=== PATIENT | male | born 1965 | race Two or more races ===

== ENCOUNTER → 2017-03-23 | Outpatient (CLI) | payer OTHER ==
[~2017-03-23] MED LIST: REGADENOSON 0.4 MG/5 ML SYRINGE ONE
== END | disposition home or self-care (01) ==
LOC: CFH 08:06
PROVIDERS: ATTEND Family Medicine
DX: I99.8 Other disorder of circulatory system (principal)
CPT/HCPCS: 78452; 93017; A9502; J2785

== ENCOUNTER 2017-04-07 09:07 | Inpatient (IN) | payer OTHER ==
[2017-04-06 11:11] LABS: BLOOD UREA NITROGEN 10 mg/dL (7-18)
[2017-04-06 11:15] LABS: ASPARTATE AMINO TRANSFERASE 28 U/L (15-37)
[~2017-04-07] VITALS: Ht 166.4 cm; Wt 90.4 kg
[~2017-04-07 09:07] MED LIST changes: +ACETAMINOPHEN 325 MG TABLET PO PRN; +AMLO10TA2 PO; +ASPI-496 PO; +ASPIRIN 325 MG TABLET EC ONE; +ASPIRIN 325 MG TABLET EC PO ONE; +ATOR40TA78 PO; +BISACODYL 10 MG SUPP PR PRN; +CARV12.543 PO; +NITR0.3T5 SL; +ONDANSETRON 2MG/ML, 2ML IVPush PRN; -REGADENOSON 0.4 MG/5 ML SYRINGE ONE; +VALS1TAB30 PO; +Will bring list DOS; +ZOLPIDEM 5MG TABLET PO PRN
[2017-04-07] MEDS: SODIUM CHLORIDE 0.9% 1,000 ML IV SCH ×2 (09:30→17:42)
[2017-04-07 09:47] VITALS: BP 150/101
[2017-04-07] MEDS ORDERED: FENTANYL PF 100 MCG/2ML ONE (10:36)
[2017-04-07] MEDS ORDERED: MIDAZOLAM 1 MG/ML, 5ML ONE (10:36)
[2017-04-07] MEDS ORDERED: LIDOCAINE 2%, 20ML ONE (10:37)
[2017-04-07] MEDS ORDERED: ACETAMINOPHEN 325 MG TABLET PO PRN (12:30)
[2017-04-07] MEDS ORDERED: INSULIN ASPART 100 UNITS/ML, PEN SQ-INSULIN SCH (12:30)
[2017-04-07] MEDS ORDERED: CHLORHEXIDINE MOUTHWASH 15 ML UDC MM PRN (12:30)
[2017-04-07] MEDS ORDERED: METOPROLOL TARTRATE 25 MG TABLET PO ONE (12:30)
[2017-04-07 13:00] VITALS: BP 155/103
[2017-04-07 13:07] LABS: BLOOD UREA NITROGEN 8 mg/dL (7-18)
[2017-04-07 13:10] LABS: ASPARTATE AMINO TRANSFERASE 25 U/L (15-37)
[2017-04-07] MEDS ORDERED: NITROGLYCERIN 0.4 MG BOTTLE (25 TABS) SL PRN (15:00)
[2017-04-07] MEDS: CARVEDILOL 12.5 MG TABLET PO SCH ×2 (17:44→20:20)
[2017-04-07 20:20] VITALS: BP 162/107
[2017-04-07] MEDS: ATORVASTATIN 40 MG TABLET PO SCH (20:32)
[2017-04-07] MEDS ORDERED: SODIUM CHLORIDE FLUSH 10ML SYR IVF SCH (21:00)
[2017-04-07 21:12] VITALS: BP 147/97
[2017-04-07] MEDS: MUPIROCIN OINT 2%, 22GM TP SCH (21:31)
[2017-04-07] MEDS ORDERED: [UNRECOGNIZED DRUG - REMARK] MC SCH (22:30)
[2017-04-08] MEDS: SODIUM CHLORIDE 0.9% 1,000 ML IV SCH ×2 (04:30→11:10)
[2017-04-08 04:50] VITALS: BP_SYST 146; BP_SYST 153; BP_DIAS 100; BP_DIAS 98
[2017-04-08] MEDS ORDERED: METOPROLOL TARTRATE 25 MG TABLET PO ONE (05:00)
[2017-04-08] MEDS: MUPIROCIN OINT 2%, 22GM TP SCH (05:04)
[2017-04-08] MEDS ORDERED: ASPIRIN 81 MG TABLET EC PO SCH (06:00)
[2017-04-08] MEDS ORDERED: HEPARIN 1,000 UNITS/ML, 10ML ONE (06:19)
[2017-04-08] MEDS ORDERED: PAPAVERINE 30 MG/ML, 2ML ONE (06:19)
[2017-04-08 06:35] VITALS: BP 154/104
[2017-04-08] MEDS ORDERED: MIDAZOLAM 10MG/2 ML ONE (07:24)
[2017-04-08] MEDS ORDERED: FENTANYL PF 1000 MCG/20ML ONE (07:24)
[2017-04-08] MEDS ORDERED: PHENYLEPHRINE 10 MG in SODIUM CHLORIDE 0.9% 249 ML IV PRN ×2 (07:30→11:20)
[2017-04-08] MEDS ORDERED: EPINEPHRINE 2 MG in SODIUM CHLORIDE 0.9% 248 ML IV SCH (07:30)
[2017-04-08] MEDS ORDERED: CEFUROXIME 1.5 GM in SODIUM CHLORIDE 0.9% 50 ML IVPB PRN (07:30)
[2017-04-08] MEDS ORDERED: MANNITOL PMX 20% 500 ML IVPB PRN (07:30)
[2017-04-08] MEDS ORDERED: DEXMEDETOMIDINE 200 MCG in SODIUM CHLORIDE 0.9% 48 ML IV SCH (07:30)
[2017-04-08] MEDS ORDERED: REGULAR INSULIN 62.5 UNITS in SODIUM CHLORIDE 0.9% 249.375 ML IV PRN ×2 (07:30→11:20)
[2017-04-08] MEDS ORDERED: VANCOMYCIN 1,400 MG in SODIUM CHLORIDE 0.9% 250 ML IVPB PRN (07:30)
[2017-04-08] MEDS ORDERED: POTASSIUM CHLORIDE 80 MEQ, SODIUM BICARBONATE 8.4% 10 MEQ, MAGNESIUM SULFATE 0.5 GM, LI... IV PRN (07:30)
[2017-04-08] MEDS ORDERED: PROPOFOL 10 MG/ML, 20ML ONE (07:48)
[2017-04-08] MEDS ORDERED: EPINEPHRINE 1 MG/ML, 1ML ONE (07:48)
[2017-04-08] MEDS ORDERED: ROCURONIUM 10 MG/ML ONE (07:48)
[2017-04-08] MEDS ORDERED: ALBUMIN HUMAN 5% 500 ML IV ONE (08:00)
[2017-04-08] MEDS ORDERED: VALSARTAN 320 MG TABLET PO SCH (09:00)
[2017-04-08] MEDS ORDERED: AMLODIPINE 5 MG TABLET PO SCH (09:00)
[2017-04-08] MEDS ORDERED: HYDROCHLOROTHIAZIDE 25 MG TABLET PO SCH (09:00)
[2017-04-08] MEDS ORDERED: DESMOPRESSIN 24 MCG in SODIUM CHLORIDE 0.9% 50 ML IVPB ONE (11:00)
[2017-04-08] MEDS ORDERED: DOBUTAMINE 250 MG in SODIUM CHLORIDE 0.9% 230 ML IV PRN (11:20)
[2017-04-08] MEDS ORDERED: CLEVIDIPINE 50 ML IV PRN (11:20)
[2017-04-08] MEDS ORDERED: NITROGLYCERIN/D5W PMX 250 ML IV PRN (11:20)
[2017-04-08] MEDS ORDERED: SODIUM CHLORIDE 0.9% 1,000 ML IV ONE (11:20)
[2017-04-08] MEDS ORDERED: SODIUM CHLORIDE 0.9% 1,000 ML IV PRN (11:20)
[2017-04-08] MEDS ORDERED: ACETAMINOPHEN 650 MG SUPP PR PRN (11:30)
[2017-04-08] MEDS ORDERED: MIDAZOLAM 1 MG/ML, 5ML IVPush PRN (11:30)
[2017-04-08] MEDS ORDERED: DEXTROSE 4 GM TAB.CHEW PO PRN (11:30)
[2017-04-08] MEDS ORDERED: MEPERIDINE/PF 25MG/0.5ML IVPush PRN (11:30)
[2017-04-08] MEDS ORDERED: DEXTROSE 50%, 50ML SYRINGE IVPush PRN (11:30)
[2017-04-08] MEDS ORDERED: LACTATED RINGERS 500 ML IVBOLUS PRN (11:30)
[2017-04-08] MEDS ORDERED: PROCHLORPERAZINE 5 MG/ML, 2ML IVPush PRN (11:30)
[2017-04-08] MEDS ORDERED: morphine SULFATE 10 MG/ML, 1ML IVPush PRN (11:30)
[2017-04-08] MEDS ORDERED: ACETAMINOPHEN 325 MG TABLET PO PRN (11:30)
[2017-04-08] MEDS ORDERED: GLUCAGON 1 MG IM PRN (11:30)
[2017-04-08] MEDS: KSCALE TO 4.5 IV SCH ×3 (11:30→23:08)
[2017-04-08] MEDS ORDERED: EPINEPHRINE 2 MG in SODIUM CHLORIDE 0.9% 248 ML IV PRN (11:30)
[2017-04-08] MEDS ORDERED: SODIUM BICARBONATE 1 MEQ/ML, 50ML VIAL IV PRN (11:30)
[2017-04-08] MEDS ORDERED: BISACODYL 10 MG SUPP PR PRN (11:30)
[2017-04-08] MEDS: DEXMEDETOMIDINE 200 MCG in SODIUM CHLORIDE 0.9% 48 ML IV PRN ×2 (12:15→14:15)
[2017-04-08] MEDS ORDERED: PROTAMINE SULFATE 10 MG/ML, 25ML ONE (12:16)
[2017-04-08] MEDS ORDERED: CALCIUM CHLORIDE 10%, 10ML SYR ONE (12:16)
[2017-04-08] MEDS ORDERED: ALBUMIN HUMAN 25% 50 ML ONE (12:16)
[2017-04-08] MEDS ORDERED: AMINOCAPROIC ACID 250 MG/ML, 20ML ONE (12:16)
[2017-04-08] MEDS ORDERED: HEPARIN 1,000 UNITS/ML, 30ML ONE (12:16)
[2017-04-08] MEDS ORDERED: methylPREDNISolone SOD SUCC 125 MG/2 ML ONE (12:17)
[2017-04-08] MEDS ORDERED: LIDOCAINE 2% 100MG/5ML SYRINGE ONE (12:17)
[2017-04-08 12:30] LABS: ABG COLLECTION SITE ARTERIAL LINE
[2017-04-08] MEDS ORDERED: POTASSIUM CHLORIDE PMX 100 ML IV ONE (14:00)
[2017-04-08] MEDS: MAGNESIUM SULFATE 1 GM in SODIUM CHLORIDE 0.9% 50 ML IVPB SCH (14:15)
[2017-04-08 17:14] LABS: ABG COLLECTION SITE ARTERIAL LINE
[2017-04-08] MEDS: VANCOMYCIN 1,300 MG in SODIUM CHLORIDE 0.9% 250 ML IVPB SCH (19:41)
[2017-04-08] MEDS: SODIUM CHLORIDE FLUSH 10ML SYR IVF SCH (19:41)
[2017-04-08] MEDS: CEFUROXIME 1.5 GM in SODIUM CHLORIDE 0.9% 50 ML IVPB SCH (19:41)
[2017-04-08] MEDS: MUPIROCIN OINT 2%, 22GM NAS SCH (19:42)
[2017-04-08] MEDS: DOCUSATE 100 MG CAPSULE PO SCH (19:42)
[2017-04-08] MEDS: ATORVASTATIN 40 MG TABLET PO SCH (19:43)
[2017-04-08] MEDS ORDERED: DOCUSATE 100 MG CAPSULE PO SCH (21:00)
[2017-04-08] MEDS: ONDANSETRON 2MG/ML, 2ML IVPush PRN (21:18)
[2017-04-08] MEDS: HYDROcodone/APAP 10/325 MG TABLET PO PRN (21:19)
[2017-04-09] MEDS: OXYcodone IR 5MG TABLET PO PRN ×6 (00:06→16:51)
[2017-04-09 03:48] LABS: ABG COLLECTION SITE NOT DOCUMENTED
[2017-04-09 03:57] LABS: BLOOD UREA NITROGEN 14 mg/dL (7-18)
[2017-04-09 04:00] VITALS: BP 120/75
[2017-04-09] MEDS: KSCALE TO 4.5 IV SCH ×2 (05:30→11:30)
[2017-04-09] MEDS: ASPIRIN 81 MG TABLET EC PO SCH (05:38)
[2017-04-09] MEDS: CEFUROXIME 1.5 GM in SODIUM CHLORIDE 0.9% 50 ML IVPB SCH (06:34)
[2017-04-09] MEDS: VANCOMYCIN 1,300 MG in SODIUM CHLORIDE 0.9% 250 ML IVPB SCH (07:55)
[2017-04-09] MEDS: INSULIN ASPART 100 UNITS/ML, PEN SQ-INSULIN PRN ×5 (08:05→16:50)
[2017-04-09] MEDS ORDERED: GUAIFENESIN/COD200MG-20MG/10ML LIQUID PO PRN (08:30)
[2017-04-09] MEDS: CLOPIDOGREL 75 MG TABLET PO SCH (08:59)
[2017-04-09] MEDS: CARVEDILOL 3.125 MG TABLET PO SCH ×2 (08:59→16:51)
[2017-04-09] MEDS: DOCUSATE 100 MG CAPSULE PO SCH ×2 (09:00→21:19)
[2017-04-09] MEDS: SODIUM CHLORIDE FLUSH 10ML SYR IVF SCH ×3 (09:00→21:18)
[2017-04-09] MEDS: PANTOPRAZOLE 40 MG IV IVPush SCH (09:00)
[2017-04-09] MEDS ORDERED: FUROSEMIDE 20 MG/2 ML IV SCH (09:00)
[2017-04-09] MEDS: BENZONATATE 100 MG CAPSULE PO SCH ×3 (09:00→21:00)
[2017-04-09] MEDS: MUPIROCIN OINT 2%, 22GM NAS SCH ×2 (09:00→21:19)
[2017-04-09] MEDS: MAGNESIUM SULFATE 1 GM in SODIUM CHLORIDE 0.9% 50 ML IVPB SCH (10:26)
[2017-04-09] MEDS: CHLORHEXIDINE MOUTHWASH 15 ML UDC MM SCH ×2 (11:34→21:20)
[2017-04-09] MEDS: HYDROcodone/APAP 10/325 MG TABLET PO PRN ×2 (13:53→21:20)
[2017-04-09 13:54] VITALS: BP 127/89
[2017-04-09 21:13] VITALS: BP 118/87
[2017-04-09] MEDS: ATORVASTATIN 40 MG TABLET PO SCH (21:19)
[2017-04-10] MEDS: OXYcodone IR 5MG TABLET PO PRN (01:28)
[2017-04-10 01:29] VITALS: BP 100/69
[2017-04-10] MEDS: HYDROcodone/APAP 10/325 MG TABLET PO PRN ×2 (05:12→09:48)
[2017-04-10 05:30] LABS: BLOOD UREA NITROGEN 17 mg/dL (7-18)
[2017-04-10 06:11] VITALS: BP 115/76
[2017-04-10] MEDS: CARVEDILOL 3.125 MG TABLET PO SCH (06:14)
[2017-04-10] MEDS: ASPIRIN 81 MG TABLET EC PO SCH (06:14)
[2017-04-10] MEDS: BENZONATATE 100 MG CAPSULE PO SCH ×3 (09:00→20:47)
[2017-04-10] MEDS: SODIUM CHLORIDE FLUSH 10ML SYR IVF SCH ×3 (09:00→20:45)
[2017-04-10 09:42] VITALS: BP 121/79
[2017-04-10] MEDS: INSULIN ASPART 100 UNITS/ML, PEN SQ-INSULIN PRN ×3 (09:46→17:03)
[2017-04-10] MEDS: FUROSEMIDE 20 MG/2 ML IV SCH ×2 (09:46→20:45)
[2017-04-10] MEDS: MUPIROCIN OINT 2%, 22GM NAS SCH ×2 (09:47→20:45)
[2017-04-10] MEDS: ENOXAPARIN 40 MG/0.4 ML SQ SCH (09:47)
[2017-04-10] MEDS: PANTOPRAZOLE 40 MG IV IVPush SCH (09:47)
[2017-04-10] MEDS: CLOPIDOGREL 75 MG TABLET PO SCH (09:47)
[2017-04-10] MEDS: DOCUSATE 100 MG CAPSULE PO SCH ×2 (09:48→20:45)
[2017-04-10] MEDS: CHLORHEXIDINE MOUTHWASH 15 ML UDC MM SCH ×2 (09:49→20:47)
[2017-04-10] MEDS ORDERED: KETOROLAC 30 MG/1 ML IVPush ONE (10:00)
[2017-04-10] MEDS: BISACODYL 5 MG EC TABLET PO PRN (11:14)
[2017-04-10] MEDS: MAGNESIUM SULFATE 1 GM in SODIUM CHLORIDE 0.9% 50 ML IVPB SCH (11:15)
[2017-04-10] MEDS: ONDANSETRON 2MG/ML, 2ML IVPush PRN (15:03)
[2017-04-10 16:21] VITALS: BP 112/78
[2017-04-10] MEDS: CARVEDILOL 6.25 MG TABLET PO SCH (17:02)
[2017-04-10 19:12] VITALS: BP 99/66
[2017-04-10] MEDS: ATORVASTATIN 40 MG TABLET PO SCH (20:46)
[2017-04-11 00:47] VITALS: BP 112/76
[2017-04-11] MEDS: HYDROcodone/APAP 10/325 MG TABLET PO PRN ×4 (02:52→20:24)
[2017-04-11 03:24] LABS: BLOOD UREA NITROGEN 18 mg/dL (7-18)
[2017-04-11 06:25] VITALS: BP 114/72
[2017-04-11] MEDS: ASPIRIN 81 MG TABLET EC PO SCH (06:27)
[2017-04-11] MEDS: CARVEDILOL 6.25 MG TABLET PO SCH ×2 (06:27→17:17)
[2017-04-11 08:06] VITALS: BP 100/68
[2017-04-11] MEDS: BENZONATATE 100 MG CAPSULE PO SCH ×3 (09:00→20:16)
[2017-04-11] MEDS ORDERED: CLOPIDOGREL 75 MG TABLET PO SCH (09:00)
[2017-04-11] MEDS: BISACODYL 5 MG EC TABLET PO PRN (09:15)
[2017-04-11] MEDS: PANTOPROZOLE 40MG TABLET PO SCH (09:16)
[2017-04-11] MEDS: ENOXAPARIN 40 MG/0.4 ML SQ SCH (09:16)
[2017-04-11] MEDS: FUROSEMIDE 20 MG/2 ML IV SCH (09:16)
[2017-04-11] MEDS: SODIUM CHLORIDE FLUSH 10ML SYR IVF SCH ×2 (09:17→20:17)
[2017-04-11] MEDS: DOCUSATE 100 MG CAPSULE PO SCH ×2 (09:17→20:16)
[2017-04-11] MEDS: CLOPIDOGREL 75 MG TABLET PO SCH (09:17)
[2017-04-11] MEDS: MUPIROCIN OINT 2%, 22GM NAS SCH ×2 (09:17→20:17)
[2017-04-11] MEDS ORDERED: ALBUTEROL/IPRATROPIUM 2.5MG/0.5MG, 3 ML ONE (09:43)
[2017-04-11] MEDS: ALBUTEROL/IPRATROPIUM 2.5MG/0.5MG, 3 ML NPPB PRN (10:36)
[2017-04-11 14:27] VITALS: BP 109/70
[2017-04-11] MEDS: POTASSIUM CHLORIDE 20 MEQ TAB.ER.PRT PO SCH ×2 (14:43→17:18)
[2017-04-11 17:16] VITALS: BP 107/71
[2017-04-11] MEDS: FUROSEMIDE 20 MG TABLET PO SCH (18:09)
[2017-04-11 18:15] VITALS: BP 117/77
[2017-04-11] MEDS: ATORVASTATIN 40 MG TABLET PO SCH (20:16)
[2017-04-12] MEDS: HYDROcodone/APAP 10/325 MG TABLET PO PRN ×6 (00:44→23:00)
[2017-04-12 02:00] VITALS: BP 107/72
[2017-04-12] MEDS: CARVEDILOL 6.25 MG TABLET PO SCH ×2 (05:19→16:54)
[2017-04-12] MEDS: ASPIRIN 81 MG TABLET EC PO SCH (05:19)
[2017-04-12 05:47] LABS: BLOOD UREA NITROGEN 13 mg/dL (7-18)
[2017-04-12 07:15] VITALS: BP 96/61
[2017-04-12 07:43] VITALS: BP 104/70
[2017-04-12] MEDS: FUROSEMIDE 20 MG TABLET PO SCH ×2 (09:32→16:54)
[2017-04-12] MEDS: POTASSIUM CHLORIDE 20 MEQ TAB.ER.PRT PO SCH ×2 (09:32→16:54)
[2017-04-12] MEDS: BENZONATATE 100 MG CAPSULE PO SCH ×3 (09:32→20:56)
[2017-04-12] MEDS: DOCUSATE 100 MG CAPSULE PO SCH ×2 (09:32→20:59)
[2017-04-12] MEDS: CLOPIDOGREL 75 MG TABLET PO SCH (09:32)
[2017-04-12] MEDS: PANTOPROZOLE 40MG TABLET PO SCH (09:32)
[2017-04-12] MEDS: SODIUM CHLORIDE FLUSH 10ML SYR IVF SCH ×2 (09:33→20:56)
[2017-04-12] MEDS: ENOXAPARIN 40 MG/0.4 ML SQ SCH (09:33)
[2017-04-12] MEDS: MUPIROCIN OINT 2%, 22GM NAS SCH ×2 (09:33→20:56)
[2017-04-12 14:21] VITALS: BP 118/83
[2017-04-12] MEDS: MAGNESIUM HYDROXIDE 8%, 30ML UDC PO PRN (16:54)
[2017-04-12 19:15] VITALS: BP 112/76
[2017-04-12] MEDS: ALBUTEROL/IPRATROPIUM 2.5MG/0.5MG, 3 ML NPPB PRN (20:03)
[2017-04-12] MEDS: ATORVASTATIN 40 MG TABLET PO SCH (20:56)
[2017-04-13 01:14] VITALS: BP 114/78
[2017-04-13] MEDS: BISACODYL 5 MG EC TABLET PO PRN (01:19)
[2017-04-13 05:51] LABS: BLOOD UREA NITROGEN 12 mg/dL (7-18)
[2017-04-13] MEDS: CARVEDILOL 6.25 MG TABLET PO SCH (06:17)
[2017-04-13] MEDS: ASPIRIN 81 MG TABLET EC PO SCH (06:17)
[2017-04-13] MEDS: HYDROcodone/APAP 10/325 MG TABLET PO PRN (06:19)
[2017-04-13 08:04] VITALS: BP 125/86
[2017-04-13] MEDS: POTASSIUM CHLORIDE 20 MEQ TAB.ER.PRT PO SCH (08:05)
[2017-04-13] MEDS: PANTOPROZOLE 40MG TABLET PO SCH (08:05)
[2017-04-13] MEDS: DOCUSATE 100 MG CAPSULE PO SCH (08:05)
[2017-04-13] MEDS: BENZONATATE 100 MG CAPSULE PO SCH (08:06)
[2017-04-13] MEDS: CLOPIDOGREL 75 MG TABLET PO SCH (08:06)
[2017-04-13] MEDS: MUPIROCIN OINT 2%, 22GM NAS SCH (08:06)
[2017-04-13] MEDS: ENOXAPARIN 40 MG/0.4 ML SQ SCH (08:07)
[2017-04-13] MEDS: FUROSEMIDE 20 MG TABLET PO SCH (08:11)
[2017-04-13] MEDS: SODIUM CHLORIDE FLUSH 10ML SYR IVF SCH (08:11)
[2017-04-13] MEDS: MAGNESIUM HYDROXIDE 8%, 30ML UDC PO PRN (11:06)
[2017-04-13] MEDS ORDERED: DOCU-30 PO (11:12)
[2017-04-13] MEDS ORDERED: ATOR40TA78 PO (11:12)
[2017-04-13] MEDS ORDERED: CARV6.2512 PO (11:12)
[2017-04-13] MEDS ORDERED: CLOP75TA PO (11:12)
[2017-04-13] MEDS ORDERED: POTA20TA6 PO (11:12)
[2017-04-13] MEDS ORDERED: FURO20TA3 PO (11:12)
[2017-04-13 12:40] VITALS: BP 126/83
[2017-04-13] MEDS ORDERED: HYDR-3307 PO (14:39)
== END 2017-04-13 15:10 | disposition home health service (06) | DRG 234 ==
LOC: CACL 09:07 → ORIP 12:30 → 5SO 14:31 → CSU 04-08 09:49 → 5SO 04-09 12:00 → DCLOUNGE 04-13 14:23
PROVIDERS: ADMIT Internal Medicine Cardiovascular Disease; ATTEND Internal Medicine Cardiovascular Disease
PROC: 021209W Bypass Coronary Artery, Three Arteries from Aorta with Autologous Venous Tissue, Open Approach (ICD-10-PCS; principal; 2017-04-07)
PROC: 02100Z9 Bypass Coronary Artery, One Artery from Left Internal Mammary, Open Approach (ICD-10-PCS; 2017-04-07)
PROC: 06BQ4ZZ Excision of Left Saphenous Vein, Percutaneous Endoscopic Approach (ICD-10-PCS; 2017-04-07)
PROC: 5A1221Z Performance of Cardiac Output, Continuous (ICD-10-PCS; 2017-04-07)
PROC: B246ZZ4 Ultrasonography of Right and Left Heart, Transesophageal (ICD-10-PCS; 2017-04-07)
PROC: B2151ZZ Fluoroscopy of Left Heart using Low Osmolar Contrast (ICD-10-PCS; 2017-04-07)
PROC: B2111ZZ Fluoroscopy of Multiple Coronary Arteries using Low Osmolar Contrast (ICD-10-PCS; 2017-04-07)
PROC: 4A023N7 Measurement of Cardiac Sampling and Pressure, Left Heart, Percutaneous Approach (ICD-10-PCS; 2017-04-07)
DX: I25.119 Atherosclerotic heart disease of native coronary artery with unspecified angina pectoris (principal); E78.00 Pure hypercholesterolemia, unspecified; E78.5 Hyperlipidemia, unspecified; I10 Essential (primary) hypertension; K59.00 Constipation, unspecified; R06.89 Other abnormalities of breathing; R60.0 Localized edema; R00.0 Tachycardia, unspecified; Z82.3 Family history of stroke; Z82.49 Family history of ischemic heart disease and other diseases of the circulatory system; Z87.891 Personal history of nicotine dependence; Z88.0 Allergy status to penicillin
CPT/HCPCS: 36415; 36600; 71010; 71020; 80048; 80053; 80061; 81003; 82040; 82330; 82800; 82803; 82810; 82947; 82962; 83036; 83735; 84132; 84295; 85014; 85018; 85025; 85049; 85347; 85610; 85730; 86850; 86900; 86923; 87081; 93005; 93306; 93312; 93321; 93325; 93458; 93880; 93970; 94002; 94640; C1760; C1894; J0171; J0697; J1644; J1650; J1815; J1885; J2250; J2405; J2704; J2720; J3010; J3370; J3475; J3480; J3490; J7620; P9045; P9047; C1751; C9113; J1940; J2370; J2440; J2930; J7030; J7050; Q9967

== ENCOUNTER 2017-04-17 08:06 | Emergency (ER) | payer OTHER ==
[~2017-04-17] VITALS: Ht 165.1 cm; Wt 86.0 kg
[~2017-04-17 08:06] MED LIST changes: -ACETAMINOPHEN 325 MG TABLET PO PRN; -ASPIRIN 325 MG TABLET EC ONE; -ASPIRIN 325 MG TABLET EC PO ONE; -BISACODYL 10 MG SUPP PR PRN; +CARV6.2512 PO; +CLOP75TA PO; +DOCU-30 PO; +FURO20TA3 PO; +HYDR-3307 PO; -ONDANSETRON 2MG/ML, 2ML IVPush PRN; +POTA20TA6 PO; -ZOLPIDEM 5MG TABLET PO PRN
[2017-04-17] MEDS ORDERED: SODIUM CHLORIDE 0.9% 1,000 ML IV ONE (08:31)
[2017-04-17] MEDS ORDERED: SODIUM CHLORIDE FLUSH 10ML SYR IVF ONE (09:00)
[2017-04-17 09:08] LABS: ASPARTATE AMINO TRANSFERASE 37 U/L (15-37); BLOOD UREA NITROGEN 14 mg/dL (7-18)
[2017-04-17] MEDS ORDERED: CEFTRIAXONE PMX 1GM/50ML 50 ML IV ONE (11:00)
[2017-04-17] MEDS ORDERED: CEFTRIAXONE PMX 1GM/50ML 50 ML ONE (11:16)
[2017-04-17 11:20] VITALS: BP 106/73
== END 2017-04-17 11:34 | disposition home or self-care (01) ==
LOC: ED 09:38
DX: L03.116 Cellulitis of left lower limb (principal); I11.9 Hypertensive heart disease without heart failure; Z88.0 Allergy status to penicillin; Z87.891 Personal history of nicotine dependence
CPT/HCPCS: 36415; 80053; 85025; 85610; 85730; 87040; 93005; 93971; 96374; 99285; J0696

== ENCOUNTER 2018-11-14 16:21 | Emergency (ER) | payer OTHER ==
[~2018-11-14] VITALS: Ht 165.1 cm; Wt 92.2 kg
[~2018-11-14 16:21] MED LIST changes: -AMLO10TA2 PO; +AMLO10TA6 PO; +DOCU-131 PO; -DOCU-30 PO
[2018-11-14] MEDS ORDERED: INDOMETHACIN 50 MG CAPSULE PO ONE (17:00)
[2018-11-14] MEDS ORDERED: HYDROcodone/APAP 5/325 TABLET PO ONE (17:00)
[2018-11-14] MEDS ORDERED: COLCHICINE 0.6 MG TABLET PO ONE (17:00)
[2018-11-14] MEDS ORDERED: HYDROcodone/APAP 5/325 TABLET ONE (17:04)
[2018-11-14] MEDS ORDERED: COLCHICINE 0.6 MG TABLET ONE (17:04)
[2018-11-14] MEDS ORDERED: INDOMETHACIN 50 MG CAPSULE ONE (17:04)
[2018-11-14 18:25] LABS: HCT (SEDRATE) 45.5 % (39.2-51.8)
[2018-11-14] MEDS ORDERED: LIDOCAINE-MPF 1%, 5ML ONE ×2 (19:47→20:12)
[2018-11-14 19:59] VITALS: BP 127/86
== END 2018-11-14 22:38 | disposition home or self-care (01) ==
LOC: ED 20:20
DX: M71.161 Other infective bursitis, right knee (principal); I10 Essential (primary) hypertension; I25.10 Atherosclerotic heart disease of native coronary artery without angina pectoris; K21.9 Gastro-esophageal reflux disease without esophagitis
CPT/HCPCS: 20610; 36415; 84550; 85651; 85810; 86141; 87070; 87205; 89050; 89060; 99284

== ENCOUNTER → 2019-01-20 | Outpatient (CLI) | payer OTHER ==
[~2019-01-20] MED LIST changes: -AMLO10TA6 PO; +AMLO10TA8 PO
== END | disposition home or self-care (01) ==
LOC: CFH 11:02
PROVIDERS: ATTEND Internal Medicine Cardiovascular Disease
DX: I35.8 Other nonrheumatic aortic valve disorders (principal); I25.10 Atherosclerotic heart disease of native coronary artery without angina pectoris; I10 Essential (primary) hypertension; E78.5 Hyperlipidemia, unspecified
CPT/HCPCS: 78452; 93017; 93306; A9502